=== PATIENT | male | born 1990 | race African-American/Black ===

== ENCOUNTER 2018-11-24 00:13 | Emergency (ER) | payer MEDICAID ==
[~2018-11-24] VITALS: Ht 182.9 cm; Wt 70.0 kg
[2018-11-24 04:19] VITALS: BP 123/86
== END 2018-11-24 04:20 | disposition left against medical advice (07) ==
LOC: ER 00:13
DX: Z53.21 Procedure and treatment not carried out due to patient leaving prior to being seen by health care provider (principal)